=== PATIENT | female | born 1975 | race African-American/Black ===

== ENCOUNTER 2017-09-13 09:02 | Day surgery (SDC) | payer BC ==
[2017-09-09 19:01] VITALS: BMI 37.7
[2017-09-13] MEDS ORDERED: MIDAZOLAM HCL 2 MG/2 ML SINGLE DOSE VIAL ONE (12:54)
--- NOTE | 2017-09-13 12:55 | HP ---
History & Physical Update - History History: No Change - Physical Physical: No Change - Assessment Assessment: No Change - Plan Plan: No Change Currently as noted:: Hysteroscopic myomectomy
[2017-09-13] MEDS ORDERED: ceFAZolin SODIUM 1 GM VIAL IVPB ONE (12:59)
[2017-09-13] MEDS ORDERED: SUCCINYLCHOLINE CHLORIDE 200 MG/10 ML VIAL ONE (13:00)
[2017-09-13] MEDS ORDERED: PROPOFOL 20 ML ONE (13:00)
[2017-09-13] MEDS ORDERED: oxyCODONE HCL 5 MG TABLET PO PRN (14:14)
[2017-09-13] MEDS ORDERED: ONDANSETRON 4 MG/2 ML VIAL IVPUSH PRN (14:14)
[2017-09-13] MEDS ORDERED: PROMETHAZINE HCL 25 MG/1 ML VIAL IVPUSH PRN (14:14)
[2017-09-13] MEDS ORDERED: LACTATED RINGERS SOLUTION 1,000 ML IV SCH (14:15)
[2017-09-13 16:04] VITALS: TEMP 97.6
[2017-09-13 18:38] VITALS: BP 146/79; PULSE 82
--- NOTE | 2017-09-13 22:56 | OP ---
DATE OF OPERATION: 09/13/2017 PREOPERATIVE DIAGNOSIS: Fibroid uterus and menorrhagia. POSTOPERATIVE DIAGNOSIS: Fibroid uterus and menorrhagia. PROCEDURE: Hysteroscopic myomectomy. SURGEON: Aleida Kelly M.D. DRYING ROOM SUPERVISOR: None. ANESTHESIOLOGIST: Alexandra Pagan M.D. ANESTHESIA: General. COMPLICATIONS: None. ESTIMATED BLOOD LOSS: 100 mL. URINE OUTPUT: 100 mL. INTRAVENOUS FLUIDS: 1000 mL. PATHOLOGY: Uterine fibroid. FINDINGS: Examination under anesthesia revealed a slightly enlarged uterus with no pelvic or adnexal masses. Hysteroscopy revealed a large intracavitary myoma approximately 3 cm in size as well as a smaller posterior submucosal myoma. PROCEDURE: The patient was met preoperatively. Risks, benefits, and alternatives of surgery were discussed in detail. All questions were answered. The patient was then brought to the OR with the IV running. She was placed on the surgical table in the supine position. The general anesthesia was achieved without difficulty. The patient was then placed in a dorsal lithotomy position using adjustable Ivan stirrups. She was examined under anesthesia with the findings as described above. The timeout procedure was conducted as per standard protocol. The patient was then prepped and draped in the usual sterile fashion. A weighted speculum was used to visualize the cervix. The anterior cervical lip was grasped with a single-toothed tenaculum. The cervical os was gently dilated to accommodate a size 27 Leiva dilator. An operative hysteroscope was then introduced inside the uterine cavity with the findings as described above. A Versapoint resection device was then used to completely resect the intracavitary fibroid. The posterior submucosal fibroid was also resected to level with the uterine cavity surface. Good hemostasis was maintained. The fragments of the fibroid were removed from the uterus using a polyps forceps. Once the procedure was completed, a hysteroscopy was once again performed. A slightly enlarged but otherwise normal uterine cavity was visualized. Good hemostasis was confirmed. The hysteroscope was then removed. Good hemostasis was once again confirmed. Sponge, lap, and instrument counts were correct. Patient was transferred to recovery room awake and in stable condition. ALEIDA KELLY M.D. HUNTER/[id number]
--- NOTE | 2017-09-15 16:08 | PATH ---
Surgical Pathology Report Patient Name: PANKAJ LEYVA Med. Rec. #: [id number] /Age/Gender: 1975 (Age: 41) / F Account: [id number] Location: [facility] SURGICAL Taken: 09/13/2017 Received: 09/14/2017 Reported: 09/15/2017 Physicians: Adriano Boston M.D. Specimen(s) Received A: ENDOMETRIAL FIBROIDS B: ENDOMETRIAL CURETTINGS Clinical History Fibroid uterus, excessive and frequent menstruation Final Diagnosis A. ENDOMETRIAL FIBROIDS, HYSTEROSCOPIC MYOMECTOMY: FRAGMENTS OF LEIOMYOMA, ENDOMETRIAL POLYP, AND SECRETORY ENDOMETRIUM. B. ENDOMETRIAL CURETTINGS, DILATION AND CURETTAGE: FRAGMENTS OF SECRETORY ENDOMETRIUM, ENDOMETRIAL POLYP, LEIOMYOMA. Electronically Signed Rosalinda Reddy M.D. Gross Description A. Received in formalin, labeled "endometrial fibroids" are multiple potts, irregular portions of soft tissue measuring 3 x 3 x 1 cm in aggregate. The specimens are entirely submitted in 3 cassettes. B. Received in formalin, labeled "endometrial curettings" are multiple dark brown portions of soft tissue measuring 2 x 2 x 1 cm in aggregate. The specimens are submitted in toto in one cassette. MICHELLE/09/14/2017 vi/09/14/2017
== END 2017-09-13 17:30 | disposition home or self-care (01) ==
LOC: JASU-SURG 09:02
PROVIDERS: ATTEND Obstetrics & Gynecology
PROC: 0UB98ZZ Excision of Uterus, Via Natural or Artificial Opening Endoscopic (ICD-10-PCS; principal; 2017-09-13 11:00)
DX: D25.9 Leiomyoma of uterus, unspecified (principal); N92.0 Excessive and frequent menstruation with regular cycle
CPT/HCPCS: 84703; 86850; 86900; 86901; 88305-TC; 94760